=== PATIENT | male | born 1965 | race Caucasian/White ===

== ENCOUNTER → 2023-09-30 | Outpatient (CLI) | payer BC ==
[~2023-09-30] VITALS: Ht 175.2 cm; Wt 87.2 kg
[~2023-09-30] MED LIST: ASCO500C17 PO; GARL500C2 PO; LOSA1TAB23 PO
== END | disposition home or self-care (01) ==
LOC: PREOP 09:00
PROVIDERS: ATTEND Surgery
DX: Z01.818 Encounter for other preprocedural examination (principal)

== ENCOUNTER 2023-10-12 09:47 | Day surgery (SDC) | payer BC ==
[~2023-10-12] VITALS: Ht 175.2 cm; Wt 87.2 kg
[2023-10-12] MEDS ORDERED: LACTATED RINGERS 1,000 ML 1,000 ML IV STA (09:48)
--- NOTE | 2023-10-12 10:15 | Progress Note-Pre Operative ---
Pre-Operative Progress Note Date of Available H&P: Sep 29, 2023 Date H&P Reviewed: Oct 12, 2023 Time H&P Reviewed: 10:14 History & Physical: H&P Reviewed, Patient Examed, No changes noted Pre-Operative Diagnosis: Screening BEATRICE BOOTHE DO Oct 12, 2023 10:15
[2023-10-12 10:20] VITALS: BP 147/78
--- NOTE | 2023-10-12 11:26 | Progress Note-Post Operative ---
Post-Operative Progess Note Surgeon (s)/Logging Assistant (s) Surgeon BEATRICE BOOTHE DO Logging Assistant: none Pre-Operative Diagnosis Screening Post-Operative Diagnosis Polyps Diverticula Int hemorrhoids Procedure & Operative Findings Date of Procedure 10/12/23 Procedure Performed/Findings Colonoscopy with snare polypectomy Colonoscopy with hot biopsy PROCEDURE NOTE: After informed consent was obtained, the patient was brought to the endoscopy suite, placed in bed in left lateral decubitus position. He was administered IV sedation by the STEEL TURNER who then monitored his vitals the entire time, heart rate, blood pressure and pulse ox and the scope was inserted, pushed all the way to about 150 cm and pushed into the cecum, took a picture of appendiceal orifice and noted the ileocecal valve. Then slowly withdrew the scope insufflating to look circumferentially at the velasquez starting in the cecum, up the ascending colon to the hepatic flexure, then down the transverse colon where I found a polyp and elected to remove it with a snare. Continued to the splenic flexure and into the descending colon where I saw a flat polyp and a diveticula. I elected to remove this polyp with hot biopsy; I couldn't get it with the snare. Next, down into the sigmoid where I found 4 large polyps (one I took off with two snares) and removed them with snare polypectomy. Finally into the rectal vault and as I removed the scope I took a picture of the internal hemorrhoids. The patient tolerated the procedure. He was recovered in endoscopy suite. Recommended for repeat colonoscopy in 3 years. Anesthesia Type IV sedation by STEEL TURNER Estimated Blood Loss Estimated blood loss (mL): scant Specimens/Packing Specimens Removed Transverse polyp desc colon polyp sigmoid polyp x 4 BEATRICE BOOTHE DO Oct 12, 2023 11:26
[2023-10-12 11:27] VITALS: BP 102/55
--- NOTE | 2023-10-12 11:27 | Endoscopy Discharge Instruct ---
Endo Procedure/Findings Findings 1.: Polyp 2.: Diverticulosis 3.: Internal Hemorrhoids Discharge Instructions - Activity: You might feel a little sleepy until tomorrow. This is due to the medicine you received to relax you. Until tomorrow, you should: NOT drive a car, operate machinery or power tools. NOT drink any alcoholic beverages. NOT make any important decisions or sign importortant papers. Do not return to work until tomorrow, unless otherwise instructed. Resume previous activities tomorrow. Diet: Start by taking liquids. If you tolerate liquids, advance to solid food. 1.: Colonscopy in 3 years Notify Physician - If you experience excessive bleeding, unusual abdominal pain, fever, or chest pain, contact your doctor immediately. Follow-Up: Other Follow up in my office in one week BEATRICE BOOTHE DO Oct 12, 2023 11:27
[2023-10-12 11:32] VITALS: BP 111/64
[2023-10-12 11:35] VITALS: BP 111/64
--- NOTE | 2023-10-12 11:47 | Anesthesia-General Post-Op ---
MAC Patient Condition Mental Status/LOC: Same as Preop Cardiovascular: Satisfactory Nausea/Vomiting: Absent Respiratory: Satisfactory Pain: Controlled Complications: Absent Post Op Complications Complications None Follow Up Care/Instructions Patient Instructions None needed. Anesthesiology Discharge Order Discharge Order Patient is doing well, no complaints, stable vital signs, no apparent adverse anesthesia problems. No complications reported per nursing. JUDY SARMIENTO CRNA Oct 12, 2023 11:47
[2023-10-12 12:05] VITALS: BP 150/74
[2023-10-12 12:23] VITALS: BP 150/74
== END 2023-10-12 12:23 | disposition home or self-care (01) ==
LOC: ENDO 09:47
PROVIDERS: ATTEND Surgery
DX: Z12.11 Encounter for screening for malignant neoplasm of colon (principal); D12.4 Benign neoplasm of descending colon; D12.5 Benign neoplasm of sigmoid colon; K63.5 Polyp of colon; K57.30 Diverticulosis of large intestine without perforation or abscess without bleeding; K64.8 Other hemorrhoids; F17.210 Nicotine dependence, cigarettes, uncomplicated
CPT/HCPCS: 88305